=== PATIENT | female | born 1950 | race Caucasian/White ===

== ENCOUNTER 2018-11-20 13:08 | Outpatient (CLI) | payer MEDICARE, BC ==
--- NOTE | 2018-11-20 17:20 | RAD ---
RIGHT CALCANEUS 2 VIEWS: INDICATION: Plantar pain of the right foot/heel region. FINDINGS: There is a plantar enthesophyte. No fracture or dislocation. Mild osteophytosis is seen at the hind foot and mid foot. IMPRESSION: 1. No acute osseous abnormality. 2. Plantar enthesophyte of the calcaneus. There is subtle underlying lucency. Correlate clinically to exclude evidence of acute enthesopathy. POS: [facility]
== END 2018-11-20 13:09 | disposition home or self-care (01) ==
LOC: BICRAD 13:08
PROVIDERS: ATTEND Podiatrist
DX: M72.2 Plantar fascial fibromatosis (principal); M77.31 Calcaneal spur, right foot

== ENCOUNTER 2020-09-06 10:23 | Outpatient (CLI) | payer MEDICARE, BC | END 2020-09-06 10:24 | disposition home or self-care (01) | LOC: CTENTCT 10:23 | PROVIDERS: ATTEND Specialist | DX: J32.9 Chronic sinusitis, unspecified (principal) | CPT/HCPCS: 70486 ==

== ENCOUNTER 2022-05-19 18:32 | Inpatient (IN) | payer MEDICARE, BC ==
[2022-05-19 19:11] LABS: #Basophils 0.1 thou/uL (0.0-0.2); #Eosinphils 0.3 thou/uL (0.0-0.7); #Lymphocytes 2.9 thou/uL (1.20-3.40); #Monocytes 0.7 thou/uL (0.11-0.59); #Neutrophils 3.7 thou/uL (1.40-6.50); %Basophils 0.8 % (0.0-1.0); %Eosinophils 4.2 % (0.0-10.0); %Lymphocytes 37.7 % (21.0-51.0); %Monocytes 8.8 % (0.0-10.0); %Neutrophils 48.5 % (42.0-75.0); Hemoglobin 15.7 g/dL (12.0-16.0); Mean Corpuscular HGB CONC 35.4 g/dL (32.0-36.0); Mean Corpuscular Hemoglobin 33.9 pg (27.0-31.0); Mean Corpuscular Volume 95.8 fl (78.0-98.0); Platelet Count 176 10x3/uL (130-400); RBC Distribution Width 11.1 % (11.5-14.5); Red Blood Cell (RBC) Count 4.65 mill/uL (4.20-5.40); White Blood Cell (WBC) Count 7.7 10x3/uL (4.8-10.8)
[2022-05-19 19:31] LABS: ALT (SGPT) 19 U/L (8-55); AST (SGOT) 21 U/L (5-34); Albumin 4.5 g/dL (3.4-4.8); Alkaline Phosphatase 101 U/L (40-110); Anion Gap 12 mmol/L (10-20); BUN (Urea Nitrogen) 13 mg/dL (9.8-20.1); Bilirubin, Total 0.6 mg/dL (0.2-1.2); Calc. Creatinine Clearance 0 mL/min (70-130); Calcium 10.1 mg/dL (7.8-10.44); Carbon Dioxide 27 mmol/L (23-31); Chloride 105 mmol/L (98-107); Estimated GFR 88; Globulin 2.8 g/dL (2.4-3.5); Glucose 94 mg/dL (80-115); Lipase 56 U/L (8-78); Potassium 3.8 mmol/L (3.5-5.1); Protein, Total 7.3 g/dL (5.8-8.1); Sodium 140 mmol/L (136-145)
[2022-05-19] MEDS ORDERED: Nitroglycerin 0.4 MG TAB 1 EACH ONE (19:45)
[2022-05-19] MEDS ORDERED: Aspirin Chewable 81 MG TAB ONE (19:45)
[2022-05-19 21:58] LABS: INR-International Normal Ratio 0.9; PTT 28.8 sec (22.9-36.1); Prothrombin Time 12.5 sec (12.0-14.7)
[2022-05-19] MEDS ORDERED: Ondansetron ODT 4 MG TAB PO PRN (22:51)
[2022-05-19] MEDS ORDERED: Acetaminophen 325 MG TAB PO PRN (22:51)
[2022-05-19] MEDS ORDERED: Nitroglycerin 0.4 MG TAB (25 Tab Bottle) SL PRN (22:51)
[2022-05-19] MEDS ORDERED: HYDROcodone/Acetaminophen 5/325 mg Tablet PO PRN (22:51)
[2022-05-19] MEDS ORDERED: Ondansetron PF 4 MG/2 ML Vial IVP PRN (22:51)
[2022-05-19 23:47] LABS: Troponin I Less than 0.010 ng/mL (< 0.028)
[2022-05-19 23:48] VITALS: BMI 26.9
[2022-05-20 05:50] LABS: #Basophils 0.1 thou/uL (0.0-0.2); #Eosinphils 0.4 thou/uL (0.0-0.7); #Lymphocytes 2.3 thou/uL (1.20-3.40); #Monocytes 0.6 thou/uL (0.11-0.59); #Neutrophils 3.4 thou/uL (1.40-6.50); %Eosinophils 5.4 % (0.0-10.0); %Lymphocytes 34.4 % (21.0-51.0); %Monocytes 9.5 % (0.0-10.0); %Neutrophils 49.7 % (42.0-75.0); Hemoglobin 14.3 g/dL (12.0-16.0); Mean Corpuscular HGB CONC 34.3 g/dL (32.0-36.0); Mean Corpuscular Hemoglobin 33.1 pg (27.0-31.0); Mean Corpuscular Volume 96.5 fl (78.0-98.0); Mean Platelet Volume 7.9 fL (7.4-10.4); Platelet Count 160 10x3/uL (130-400); RBC Distribution Width 11.1 % (11.5-14.5); Red Blood Cell (RBC) Count 4.32 mill/uL (4.20-5.40); White Blood Cell (WBC) Count 6.8 10x3/uL (4.8-10.8)
[2022-05-20] MEDS ORDERED: Thyroid 60 MG TAB PO SCH ×2 (06:00→09:00)
[2022-05-20 06:16] LABS: Troponin I Less than 0.010 ng/mL (< 0.028)
[2022-05-20 06:19] LABS: Anion Gap 10 mmol/L (10-20); BUN (Urea Nitrogen) 11 mg/dL (9.8-20.1); Calc. Creatinine Clearance 92 mL/min (70-130); Calcium 9.7 mg/dL (7.8-10.44); Carbon Dioxide 26 mmol/L (23-31); Cardiac Risk 3.2 (Less than 4.5); Chloride 107 mmol/L (98-107); Cholesterol 139 mg/dl (< 200 Desired); Estimated GFR 95; Glucose 91 mg/dL (80-115); HDL Cholesterol 44 mg/dL (>60 Neg Risk); LDL Cholesterol, Calculated 72 mg/dL; Potassium 3.9 mmol/L (3.5-5.1); Sodium 139 mmol/L (136-145); Triglycerides 113 mg/dL (Less than 150)
[2022-05-20] MEDS ORDERED: Aspirin 81 mg Enteric Coated Tablet PO SCH (09:00)
[2022-05-20] MEDS ORDERED: Aspirin Chewable 81 MG TAB PO SCH (09:00)
[2022-05-20] MEDS ORDERED: ALPRAZolam 0.25 MG TAB PO PRN (09:26)
[2022-05-20 16:47] VITALS: BP 121/66; TEMP 97.9
[2022-05-20] MEDS ORDERED: Simvastatin 10 MG TAB PO SCH (21:00)
== END 2022-05-20 17:32 | disposition home or self-care (01) | DRG 313 ==
LOC: ERS 18:32 → 2SW 22:12 → OBSVTOIN 05-20 12:43
PROVIDERS: ADMIT Student in an Organized Health Care Education/Training Program; ATTEND Family Medicine
DX: R07.9 Chest pain, unspecified (principal); E03.9 Hypothyroidism, unspecified; K21.9 Gastro-esophageal reflux disease without esophagitis; I10 Essential (primary) hypertension; I25.10 Atherosclerotic heart disease of native coronary artery without angina pectoris; E78.00 Pure hypercholesterolemia, unspecified; F41.9 Anxiety disorder, unspecified; Z20.822 Contact with and (suspected) exposure to COVID-19; Z82.49 Family history of ischemic heart disease and other diseases of the circulatory system; Z79.899 Other long term (current) drug therapy; Z79.82 Long term (current) use of aspirin; Z90.710 Acquired absence of both cervix and uterus
CPT/HCPCS: 36415; 71045; 78452; 80048; 80053; 80061; 83690; 83880; 84443; 84484; 85025; 85610; 85730; 93005; 93017; A9500; G0378; U0003; U0005